=== PATIENT | male | born 1995 | race Caucasian/White ===

== ENCOUNTER 2020-04-21 18:15 | Emergency (ER) | payer MEDICAID ==
[~2020-04-21] VITALS: Ht 172.7 cm; Wt 68.2 kg
[~2020-04-21 18:15] MED LIST: ALBU6.7H9 INH; BUDE10.22 INH; PRED10TA PO
[2020-04-21] MEDS ORDERED: azithromycin 250mg tablet PO ONE (18:45)
[2020-04-21] MEDS ORDERED: CefTRIAXone 250MG IM Kit w/LIDOcaine IM ONE (18:45)
[2020-04-21 19:25] VITALS: BP 109/78
== END 2020-04-21 19:45 | disposition home or self-care (01) ==
LOC: ER 19:30
DX: A64 Unspecified sexually transmitted disease (principal); J45.909 Unspecified asthma, uncomplicated; F12.90 Cannabis use, unspecified, uncomplicated; F11.90 Opioid use, unspecified, uncomplicated; Z56.0 Unemployment, unspecified; Z79.899 Other long term (current) drug therapy
CPT/HCPCS: 36415; 86592; 87491; 87591; 96372; 99283; J0696

== ENCOUNTER 2020-10-21 02:25 | Emergency (ER) | payer MEDICAID ==
[~2020-10-21] VITALS: Ht 172.7 cm; Wt 66.8 kg
[2020-10-21 02:34] VITALS: BP 128/83
[2020-10-21] MEDS ORDERED: ketorolac trometh inj. 60 MG/2 ML VIAL IM ONE (02:45)
[2020-10-21] MEDS ORDERED: HYDROcodone/acetaminophen 5mg/325mg tablet PO ONE (02:45)
[2020-10-21] MEDS ORDERED: acetaminophen 325mg tablet PO ONE (02:45)
[2020-10-21 03:03] LABS: CLARITY,URINE CLEAR (Clear); COLOR,URINE YELLOW (Yellow); GLUCOSE, URINE NEGATIVE (Neg); KETONES,URINE NEGATIVE (Neg); LEUKOCYTE ESTERASE ,URINE SMALL (Neg); NITRITES, URINE POSITIVE (Neg); OCCULT BLOOD,URINE MODERATE (Neg); PH,URINE 5.5 (4.8-8.0); PROTEIN,URINE TRACE mg/dl (Neg)
[2020-10-21 03:04] LABS: UA COLLECTION TYPE NON-SPECIFIED
[2020-10-21 03:11] LABS: BACTERIA,URINE 4+ /HPF (Neg); SQUAMOUS EPITHELIAL CELL,UR FEW /LPF (FEW); WBC,URINE TNTC /HPF (0-4)
[2020-10-21 03:22] LABS: URINE AMPHETAMINE SCREEN POSITIVE (Neg); URINE BARBITUATE SCREEN NEGATIVE (Neg); URINE BENZODIAZEPINES SCREEN NEGATIVE (Neg); URINE CANNABINOID SCREEN NEGATIVE (Neg); URINE COCAINE SCREEN NEGATIVE (Neg); URINE METHADONE SCREEN NEGATIVE (Neg); URINE OPIATE SCREEN POSITIVE (Neg); URINE PHENCYCLIDINE SCREEN NEGATIVE (Neg)
[2020-10-21] MEDS ORDERED: DOXY100C77 PO (03:29)
[2020-10-21] MEDS ORDERED: CefTRIAXone 1000mg IM Kit (w/lidocaine diluent) IM ONE (03:30)
[2020-10-21] MEDS ORDERED: azithromycin 250mg tablet PO ONE (03:30)
== END 2020-10-21 04:03 | disposition home or self-care (01) ==
LOC: ER 02:26
DX: N45.1 Epididymitis (principal); N50.811 Right testicular pain; N50.812 Left testicular pain; J45.909 Unspecified asthma, uncomplicated; F12.90 Cannabis use, unspecified, uncomplicated; F15.90 Other stimulant use, unspecified, uncomplicated; F11.90 Opioid use, unspecified, uncomplicated; Z56.0 Unemployment, unspecified; Z79.2 Long term (current) use of antibiotics; Z79.899 Other long term (current) drug therapy
CPT/HCPCS: 76870; 80305; 81001; 87088; 87186; 93976; 96372; 99284; J0696; J1885; 87077

== ENCOUNTER 2023-07-27 16:21 | Emergency (ER) | payer MEDICAID ==
[~2023-07-27] VITALS: Ht 175.3 cm; Wt 74.5 kg
[~2023-07-27 16:21] MED LIST changes: +ALBU6.7H14 INH; -ALBU6.7H9 INH
[2023-07-27 16:36] VITALS: PULSE 103; TEMP 98.3
[2023-07-27] MEDS ORDERED: normal saline 1000ML IV soln IVB ONE (16:40)
[2023-07-27] MEDS ORDERED: LORazepam 2 mg/ml vial IV ONE (16:40)
[2023-07-27] MEDS ORDERED: levetiracetam inj 1,000 MG in normal saline 100ml IV soln 100 ML IV SCH (17:00)
[2023-07-27 17:47] LABS: BASOPHILS # (AUTO) 0.1 X10'3 (0-0.2); BASOPHILS % (AUTO) 1.1 % (0-1); EOSINOPHILS # (AUTO) 0.2 X10'3 (0-0.9); EOSINOPHILS % (AUTO) 2.4 % (0-6); HEMATOCRIT 42.5 % (42.0-52.0); HEMOGLOBIN 14.2 g/dl (14.0-17.9); LYMPHOCYTES # (AUTO) 1.4 X10'3 (1.1-4.8); LYMPHOCYTES % (AUTO) 22.6 % (21-51); MEAN CORPUSCULAR HEMOGLOBIN 29.3 PG (27.0-31.0); MEAN CORPUSCULAR HGB CONC 33.4 g/dL (33.0-36.5); MEAN CORPUSCULAR VOLUME 87.8 FL (78-98); MEAN PLATELET VOLUME 7.1 FL (7.4-10.4); MONOCYTES # (AUTO) 0.7 X10'3 (0-0.9); MONOCYTES % (AUTO) 10.8 % (2-12); NEUTROPHILS % (AUTO) 63.1 % (42-75); PLATELET COUNT 331 X10'3 (140-440); RED BLOOD COUNT 4.84 X10'6 (4.70-6.10); RED CELL DISTRIBUTION WIDTH 13.2 % (11.5-14.5); WHITE BLOOD COUNT 6.4 X10'3 (4.5-11.0)
[2023-07-27 18:02] LABS: ALANINE AMINOTRANSFERASE 66 U/L (12-78); ALBUMIN 4.2 G/DL (3.4-5.0); ALBUMIN/GLOBULIN RATIO 1.2 (1.1-1.5); ALKALINE PHOSPHATASE 88 IU/L (46-116); ANION GAP 7 (8-16); ASPARTATE AMINO TRANSFERASE 34 U/L (10-37); BILIRUBIN,TOTAL 0.5 MG/DL (0.1-1.0); BLOOD UREA NITROGEN 14 MG/DL (7-18); BUN/CREATININE RATIO 15.4 (10.0-20.0); CALCIUM 9.1 MG/DL (8.5-10.1); CHLORIDE 101 MMOL/L (99-107); CREATININE 0.91 MG/DL (0.60-1.10); GLUCOSE 91 MG/DL (70-104); POTASSIUM 3.9 MMOL/L (3.5-5.1); SODIUM 137 MMOL/L (135-145); TOTAL CARBON DIOXIDE 28.8 MMOL/L (24-32); TOTAL PROTEIN 7.6 G/DL (6.4-8.2); eCRCL 120 ML/MIN; eGFR > 90 ML/MIN
[2023-07-27 18:08] LABS: ETHANOL < 10 MG/DL (<10)
[2023-07-27 18:37] VITALS: BP 125/72; RESP 16; O2SAT 98
== END 2023-07-27 18:38 | disposition home or self-care (01) ==
LOC: ER 16:21
DX: R56.9 Unspecified convulsions (principal); J45.909 Unspecified asthma, uncomplicated; F12.10 Cannabis abuse, uncomplicated; F15.10 Other stimulant abuse, uncomplicated; Z79.899 Other long term (current) drug therapy
CPT/HCPCS: 36415; 70450; 71045; 80053; 80320; 82948; 84484; 85025; 96365; 96375; 99285; A6258; J1953; J2060; J3490; J7030; 96374

== ENCOUNTER 2024-09-05 11:45 | Outpatient (CLI) | payer MEDICAID | END 2024-09-05 23:59 | disposition home or self-care (01) | LOC: RAD 11:45 | PROVIDERS: ATTEND Physician Assistant | DX: F11.20 Opioid dependence, uncomplicated (principal) | CPT/HCPCS: 93005 ==

== ENCOUNTER 2025-03-21 14:20 | Emergency (ER) | payer MEDICAID ==
[~2025-03-21] VITALS: Ht 172.7 cm; Wt 80.0 kg
[2025-03-21 14:26] VITALS: TEMP 98.1
--- NOTE | 2025-03-21 14:35 | Physician Documentation ---
History of Present Illness ~ Chief Complaint: Medical Clearance Stated Complaint: MED CLEARANCE Time Seen by MD: 14:30 Primary Medical Doctor: None Source: patient, family Mode of Arrival: POV Exam Limitations: no limitations HPI 29 yo needing medical clearence for [facility]. Tetanus within 5 years?: No Medication Reconciliation Allergies: Coded Allergies: No Known Allergies (Unverified , 07/27/23) Scheduled Albuterol Sulfate (Proventil Hfa), 2 PUFFS INH Q6H Budesonide/Formoterol Fumarate (Symbicort 80-4.5 Mcg Inhaler), 2 PUFFS INH Q12H Prednisone (Prednisone), 0 PO DAILY Past Medical History Past Medical History: Seizures, Asthma Past Surgical History: noncontributory Drug Use: marijuana, methamphetamine, heroin Lives with: Family Lives In: Home Occupation: unemployed Review of Systems All Other Systems at this time: Reviewed and Negative Physical Exam Vital Signs: RN Vital Signs have been reviewed: Yes, Temperature: 98.1, Source: Temporal, Heart Rate: 94, Respiratory Rate: 17, BP: 185/80, Pulse Oximetry: 97, Weight: 80.000 Physical Exam General: Alert, no apparent distress. HEENT: PERRL, EOMI, no injection, moist mucous membranes. Neck: Full range of motion. Respiratory: Lungs clear, no respiratory distress. Chest: No accessory muscle use. Cardiovascular: Regular rate and rhythm, no murmurs. Extremities: Normal range of motion, no deformity. Neurologic: Oriented x4. Psychiatric: Normal mood and affect. Skin: Normal color, warm and dry. No edema, no ecchymosis. Progress Results/Orders Results/Orders Vital Signs 03/21/25 03/21/25 03/21/25 14:26 14:41 14:41 Temp 98.1 Pulse 94 97 94 Resp 17 15 17 B/P (MAP) 185/80 185/80 185/80 (115) Pulse Ox 97 97 97 Medical Decision Making Findings Patient requiring medical clearance for [facility] substance use fentanyl and meth Departure Time of Disposition: 14:32 Disposition: 01 HOME / SELF CARE / HOMELESS Impression: Primary Impression: General medical exam Additional Impression: Methamphetamine abuse Condition: Stable Discharge Instructions: Medical Screening Exam Additional Instructions: Patient is cleared for [facility] Referrals: NO PRIMARY CARE PROVIDER (PCP) Education Educated: Patient, Family Educated regarding: diagnosis, treatment, need for follow up Signature Scribe Signature: no scribe Attestation: The note accurately reflects work and decisions made by me.Wanda MYLES 03/21/25 14:32 WANDA LAU NP Mar 21, 2025 14:35
[2025-03-21 14:41] VITALS: BP 185/80; PULSE 97; RESP 15; O2SAT 97
== END 2025-03-21 14:43 | disposition home or self-care (01) ==
LOC: ER 14:21
DX: Z00.00 Encounter for general adult medical examination without abnormal findings (principal); F15.10 Other stimulant abuse, uncomplicated; F12.90 Cannabis use, unspecified, uncomplicated; F11.90 Opioid use, unspecified, uncomplicated; J45.909 Unspecified asthma, uncomplicated; Z56.0 Unemployment, unspecified; Z79.899 Other long term (current) drug therapy
CPT/HCPCS: 99282

== ENCOUNTER 2025-03-31 01:31 | Emergency (ER) | payer MEDICAID ==
[~2025-03-31] VITALS: Ht 175.3 cm; Wt 81.8 kg
[2025-03-31] MEDS ORDERED: CLIN300C3 PO (02:31)
--- NOTE | 2025-03-31 02:31 | Physician Documentation ---
HPI ~ General Chief Complaint: Facial Swelling Stated Complaint: FACIAL ABCESS Time Seen by MD: 02:28 Primary Medical Doctor: None Mode of Arrival: POV History of Present Illness HPI Comment Dental pain and facial swelling no difficulty breathing. Medication Reconciliation Allergies: Coded Allergies: No Known Allergies (Unverified , 07/27/23) Scheduled Albuterol Sulfate (Proventil Hfa), 2 PUFFS INH Q6H Budesonide/Formoterol Fumarate (Symbicort 80-4.5 Mcg Inhaler), 2 PUFFS INH Q12H Prednisone (Prednisone), 0 PO DAILY Past Medical History Past Medical History: Seizures, Asthma Past Surgical History: noncontributory Drug Use: marijuana, methamphetamine, heroin Lives with: Family Lives In: Home Occupation: unemployed Review of Systems All Other Systems at this time: Reviewed and Negative Physical Exam Vital Signs: Temperature: 98.7, Heart Rate: 90, Respiratory Rate: 16, BP: 128/82, Pulse Oximetry: 99, Weight: 81.820 Oxygen Flow Rate: 0 Physical Exam HEENT: PERRL, moist oral mucosa, EOMI +facial swelling + poor dentition Pulmonary: No respiratory distress MSK: no deformity Skin: w/d/i, no rash Neuro: alert, nonfocal Psych: normal affect Progress Results/Orders Results/Orders Vital Signs 03/31/25 03/31/25 01:32 01:58 Temp 98.7 Pulse 81 90 Resp 16 B/P (MAP) 127/73 128/82 (97) Pulse Ox 100 99 O2 Flow Rate 0 Medical Decision Making Findings 30 year old male with facial swelling and dental pain. Rx aBx return precautions. Differential Dx:Considerations: Include: Periapical abscess, Peridontal abscess, Tooth avulsion, Tooth eruption, Tooth Fracture Departure Disposition: HOME / SELF CARE / HOMELESS Impression: Primary Impression: Dental abscess Condition: Stable Discharge Instructions: Abscess, Dental Referrals: NO PRIMARY CARE PROVIDER (PCP) Prescriptions Clindamycin Hcl (Cleocin Hcl) Y Capsule 300 MG PO TID for 10 Days, #30 CAP Prov: DENISA ROMANO MD 03/31/25 Education Educated: Patient Educated regarding: diagnosis, treatment, prognosis, need for follow up Signature Scribe Signature: . Attestation: . DENISA ROMANO MD Mar 31, 2025 02:31
[2025-03-31 02:37] VITALS: BP 128/82; PULSE 63; RESP 17; TEMP 98.7; O2SAT 100
[2025-03-31] MEDS: ketorolac trometh 30MG/ML vial 30 MG/ML VIAL IM ONE (02:44)
== END 2025-03-31 02:47 | disposition home or self-care (01) ==
LOC: ER 01:31
DX: K04.7 Periapical abscess without sinus (principal); J45.909 Unspecified asthma, uncomplicated; F12.90 Cannabis use, unspecified, uncomplicated; F15.90 Other stimulant use, unspecified, uncomplicated; F11.90 Opioid use, unspecified, uncomplicated; Z56.0 Unemployment, unspecified; Z79.899 Other long term (current) drug therapy
CPT/HCPCS: 96372; 99283; J1885